=== PATIENT | male | born 1945 | race Caucasian/White ===

== ENCOUNTER 2023-05-23 07:15 | Day surgery (SDC) | payer MEDICARE, OTHER ==
[2023-05-23] MEDS ORDERED: SIMETHICONE 40 MG/0.6 ML, 30ML BOTTLE ONE (09:10)
[2023-05-23] MEDS ORDERED: PROPOFOL 200 MG/20 ML BOTTLE ONE (09:10)
[2023-05-23] MEDS ORDERED: LIDOCAINE-MPF 2% 5 ML VIAL ONE (09:10)
[2023-05-23 10:30] VITALS: TEMP 97.6
== END 2023-05-23 10:30 | disposition home or self-care (01) ==
LOC: DS 07:15
PROVIDERS: ATTEND Surgery
DX: R10.9 Unspecified abdominal pain (principal); R10.13 Epigastric pain; K44.9 Diaphragmatic hernia without obstruction or gangrene; R19.7 Diarrhea, unspecified; K29.80 Duodenitis without bleeding; K63.5 Polyp of colon; K29.50 Unspecified chronic gastritis without bleeding; I10 Essential (primary) hypertension; E11.9 Type 2 diabetes mellitus without complications; F41.9 Anxiety disorder, unspecified; N40.0 Benign prostatic hyperplasia without lower urinary tract symptoms; Z79.899 Other long term (current) drug therapy; Z86.010 Personal history of colon polyps; Z98.890 Other specified postprocedural states
CPT/HCPCS: 45385; 45380; 43239; 71045; 82962; 88313; 88342; 88341; 88305; 93005; J3490; J7040; A4663